=== PATIENT | male | born 1975 | race Caucasian/White ===

== ENCOUNTER 2018-12-13 14:16 | Observation (INO) | payer BC ==
[~2018-12-13] VITALS: Ht 172.7 cm; Wt 78.2 kg
--- NOTE | ~2018-12-13 | HEMODYNAMI ---
PATIENT:ESTHER VALDEZ MEDICAL RECORD: [id number] : 71 [facility] D[id number] ADMISSION DATE: 12/13/18 Generatedon:12/14/201811:36 Patient name: ESTHER VALDEZ Patient #: [id number] SSN: Jos OB: 1975 Date of study: 12/14/2018 Page: Of Hemodynamic Procedure Report Patient Data Patient Demographics Procedure consent was obtained First Name: ESTHER Gender: Male Last Name: JOSÉ MIGUEL : 1975 Middle Initial: MIKE Age: 43 year(s) Patient #: [id number] Race: Unknown Additional ID: [id number] Contact details [address]: [address] [place] [address] State: [place] City: [place] Zip code: [address] Admission Admission Data Admission Date: 12/13/2018 Admission Time: 17:40 Admit Source: Other Room #: D.2122 Height (in.): 67.72 BSA: 1.91 (m2) Height (cm.): 172 BMI: 26.37 (kg/m2) Weight (lbs.): 171.96 Weight (kg.): 78 Lab Results Lab Result Date: 12/14/2018 Lab Result Time: 0:00 Biochemistry Name Units Result Min Max BUN mg/dl 12 --(-*--)-- 7 18 Creatinine mg/dl 0.9 --(-*--)-- 0.6 1.3 CBC Name Units Result Min Max Hemoglobin g/dl 16.3 --(--*-)-- 13.5 17.5 Procedure Procedure Types Cath Procedure Diagnostic Procedure LHC LHC w/Coronaries Procedure Description Procedure Date Procedure Date: 12/14/2018 Procedure Start Time: 11:27 Procedure End Time: 11:34 Procedure Staff Name Function Willam Coe MD Performing Physician Margaret Cha RT Monitor Ken Garcia RT Scrub José Miguel Zamora RN Nurse Procedure Data Cath Procedure Fluoroscopy Diagnostic fluoroscopy Total fluoroscopy Time: 1 time: 1 min min Diagnostic fluoroscopy Total fluoroscopy dose: 354 dose: 354 mGy mGy Contrast Material Contrast Material Type Amount (ml) Isovue 370 67 Entry Location Entry Primary Successful Side Size Upsize Upsize Entry Closure Succes sful Closure Location (Fr) 1 (Fr) 2 (Fr) Remarks Device Remarks Femoral Right 5 Fr Exoseal artery Estimated blood loss: 5 ml Diagnostic catheters Device Type Used For End Catheter Placement MULTIPACK JL 4.0 5Fr Left Coronary catheter Angiography MULTIPACK 3DRC 5Fr Right Coronary catheter Angiography MULTIPACK Pigtail 5 Fr LV Angiography catheter Procedure Complications No complications Procedure Medications Medication Administration Route Dosage Oxygen etCO2 Nasal cannula 2 l/min Lidocaine 2% added to field 20 Heparin Flush Bag added to field 2 bags (1000units/500ml NS) 0.9% NaCl I.V. 100 ml/hr Versed I.V. 2 mg Fentanyl I.V. 100 mcg Versed I.V. 0.5 mg Fentanyl I.V. 25 mcg Solumedrol I.V. 125 mg Hemodynamics Rest BSA: 1.91 (m2) HGB: 16.3 (g/dl) O2 Consumption: Estimated: 230.12 (ml/min) O2 Co nsumption indexed: Estimated:120.48 (ml/min/m) Heart Rate: 69 (bpm) Pressure Samples Time Site Value (mmHg) Purpose Heart Use Rate(bpm) 11:31 LV 98/7,12 Snapshot 59 11:32 AO 110/77(91) Pullback 64 Gradients Valve Time Site Site 2 Mean SEP/DFP Peak To Heart Use 1 (mmHg) (sec/min) Peak Rate (mmHg) (bpm) Aortic 11:32 LV AO 64 110/77(91) Snapshots Pre Cath Intra NCS Post Cath Vital Signs Time Heart Resp SPO2 etCO2 NIBP (mmHg) Rhythm Pain Sedation Rate (ipm) (%) (mmHg) Status Level (bpm) 11:01:08 68 15 98 0 143/95(105) NSR w/ ST 0 (11) 10(A) Elevation , No pain 11:05:22 66 11 97 38.8 121/83(101) NSR w/ ST 0 (11) 10(A) Elevation , No pain 11:09:30 60 17 98 37.4 128/77(102) NSR w/ ST 0 (11) 10(A) Elevation , No pain 11:13:42 59 17 98 17.2 125/69(85) NSR w/ ST 0 (11) 9(A) Elevation , No pain 11:17:52 59 17 98 47.9 122/70(91) NSR w/ ST 0 (11) 9(A) Elevation , No pain 11:22:02 57 18 98 28.4 126/67(99) NSR w/ ST 0 (11) 9(A) Elevation , No pain 11:26:14 62 16 98 40.4 119/67(108) NSR w/ ST 0 (11) 9(A) Elevation , No pain 11:30:22 59 17 98 38.1 122/69(84) NSR w/ ST 0 (11) 9(A) Elevation , No pain 11:34:33 62 18 98 40.4 121/63(100) NSR w/ ST 0 (11) 10(A) Elevation , No pain Medications Time Medication Route Dose Verified Delivered Reason Notes Eff ectiveness by by 11:01:32 Oxygen etCO2 2 Willam Valdez used for Nasal l/min Saravanan Zamora specifications checker cannula 11:01:40 Lidocaine 2% added 20ml Willam Quarles for local to vial [facility] anesthetic field MD FABIAN 11:01:46 Heparin Flush added 2 Willam Chanelory used for Bag to bags [facility] procedure (1000units/500ml field MD FABIAN NS) 11:01:54 0.9% NaCl I.V. 100 Willam Valdez Per ml/hr St Barrie Zamora RN physician 11:10:03 Versed I.V. 2 mg Willam Valdez for SaravananBarrie Zamora RN sedation 11:10:09 Fentanyl I.V. 100 Willam Valdez for mcg Saravanan Zamora RN sedation 11:27:41 Versed I.V. 0.5 Willam Valdez for mg SaravananBarrie Zamora RN sedation 11:27:46 Fentanyl I.V. 25 Willam Valdez for mcg Saravanan Zamora RN sedation 11:34:18 Solumedrol I.V. 125 Willam Valdez Per mg Saravanan Zamora RN physician Procedure Log Time Note 10:30:25 Ken Garcia RT(R) sent for patient. Start room use. 10:43:26 Time tracking: Regular hours (M-F 7:00 - 5:00) 10:43:30 Plan of Care:Hemodynamics will remain stable., Cardiac rhythm will remain stable., Comfort level will be maintained., Respiratory function will remain adequate., Patient/ family verbilizes understanding of procedure., Procedure tolerated without complication., Recovers from procedure without complications.. 10:55:07 Patient received from Med II to CCL 2 Alert and oriented. Tansferred to table in Supine position. 10:55:08 Warm blankets applied, and irineo hugger turned on for patient comfort. 10:55:08 Correct patient and procedure confirmed by team. 10:55:10 Signed procedure consent form obtained from patient. 10:55:11 ECG and BP/O2 sat monitors applied to patient. 10:55:12 Pre-procedure instructions explained to patient. 10:55:12 Pre-op teaching completed and patient verbalized understanding. 10:55:14 Family in patients room. 10:55:21 H&P Date Dictated: 12/13/2018 Within 30 days and on chart.. 10:57:27 Is the patient allergic to Iodine/contrast media? No. 10:57:32 Is patient on blood thinner?No 10:57:36 Patient diabetic? No. 10:57:39 Previous problem with sedation/anesthesia? No ? 10:57:41 Snore? Yes 10:57:43 Sleep apnea? No 10:57:43 Deviated septum? No 10:57:44 Opens mouth fully? Yes 10:57:45 Sticks out tongue? Yes 10:57:47 Airway obstruction? No ? 10:57:53 Dentures? No ? 10:57:57 Pre procedure: right dorsailis pedis pulse 1+ Palpable, but thready & weak; easily obliterated 10:58:38 PHYSICIAN OPTED FOR FEMORAL APPROACH. 10:58:41 Patient pain scale 0/10 ?. 10:58:47 IV patent on arrival in left forearm with 0.9% NaCl at O. 10:58:49 Lab results completed and on chart. 10:58:55 Right groin area was prepped with chlora-prep and draped in sterile fashion 10:58:56 Alarms reviewed by R. N. 10:58:56 Sharps counted by scrub and verified by R.N. 10:59:17 Full Disclosure recording started 10:59:51 Rhythm: sinus rhythm , w/ ST elevation 10:59: Baseline sample Acquired. 11:00:02 Vital chart was started 11:01:32 Oxygen 2 l/min etCO2 Nasal cannula was administered by José Miguel Zamora RN; used for procedure; 11::40 Lidocaine 2% 20ml vial added to field was administered by Willam Coe MD; for local anesthetic; 11::46 Heparin Flush Bag (1000units/500ml NS) 2 bags added to field was administered by Willam Coe MD; used for procedure; :54 0.9% NaCl 100 ml/hr I.V. was administered by José Miguel Zamora RN; Per physician; 11:05:47 Admit Source: Other Patient Height : 67.72 inches Patient Weight : 171.96 lbs Lab Result : Hemoglobin 16.3 g/dl Lab Result : Creatinine 0.9 mg/dl Lab Result : BUN 12 mg/dl Physician arrived --------ALL STOP TIME OUT------ Final Timeout: patient, procedure, and site verified with staff and physician. All members of the team are in agreement. 11:: Right groin site verified by team. :: Maximum allowable Isovue 370 dose 300ml. Physician notified. (300ml for normal creatinines. For patients with creatinine of 1.7 or higher multiply weight(kg) x 5 divided by creatinine.) 11:: Fire Safety Assessment: A--An alcohol-based skin anteseptic being used preoperatively., C--Open oxygen or nitrous oxide is being used., D--An ESU, laser, or fiber-optic light is being used. 11:08:13 Physical assessment completed. ASA score P 2 - A patient with mild systemic disease as per Willam Coe MD. 11:08:16 Sedation plan: IV Moderate Sedation Medication:Versed, Fentanyl 11:09:56 Zero performed for pressure channel P1 11::03 Versed 2 mg I.V. was administered by José Miguel Zamora RN; for sedation; 11:: Fentanyl 100 mcg I.V. was administered by Buffie Zamora RN; for sedation; 11:26:53 Procedure started. 11:27:14 Local anesthetic to right femoral artery with Lidocaine 2% by Willam Coe MD.INITIAL ACCESS ONLY 11:27:28 A 5 Fr sheath was inserted into the Right Femoral artery 11:27:41 Versed 0.5 mg I.V. was administered by José Miguel Zamora RN; for sedation; 11:27:46 Fentanyl 25 mcg I.V. was administered by José Miguel Zamora RN; for sedation; 11:28:12 Use device set Femoral Dx 11:28:13 ACIST Syringe (24996) opened to sterile field. 11:28:13 Bag Decanter (2002S) opened to sterile field. 11:28:14 Medline Cath Pack ([id number]) opened to sterile field. 11:28:14 DIAGNOSTIC WIRE .035 260cm J wire (808849) opened to sterile field. 11:28:16 ACIST Hand Control (44941) opened to sterile field. 11:28:16 ACIST Manifold (82982) opened to sterile field. 11:28:17 DIAGNOSTIC Multipack 5Fr catheter set (AQ8450) opened to sterile field. 11:28:17 Tegaderm 4 x 4 (1626W) opened to sterile field. 11:28:18 SHEATH 5FR Magazine (WOT425) opened to sterile field. 11:28:25 A MULTIPACK JL 4.0 5Fr catheter was advanced over the wire and used for Left Coronary Angiography. 11:28:26 LCA angiography performed. 11:28:29 Injector settings: Ml/sec: 3, Volume: 6, 11:29:16 Catheter removed. 11:29:22 A MULTIPACK 3DRC 5Fr catheter was advanced over the wire and used for Right Coronary Angiography. 11:30:09 RCA angiography performed. 11:30:12 Injector settings: Ml/sec: 3, Volume: 6, 11:30:14 Catheter removed. 11:30:20 A MULTIPACK Pigtail 5 Fr catheter was advanced over the wire and used for LV Angiography. 11:31:28 LV hemodynamics recorded. 11:31:29 LV gram done using MEDRANO 11:31:34 Injector settings: Ml/sec: 5, Volume: 15, 11:31:43 EF : 50 % 11:32:16 Catheter removed. 11:32:18 EXOSEAL 5Fr (EX500) opened to sterile field. 11:32:29 Sheath removed intact; hemostasis achieved with Exoseal to the Right Femoral artery. 11:32:31 Procedure ended.(Physican Out) 11:33:04 Fluoroscopy time 01.00 minutes. 11:33:09 Fluoroscopy dose: 354 mGy 11:33:09 Flurop Dose total: 354 11:33:12 Contrast amount:Isovue 370 67ml. 11:33:14 Sharps counted by scrub and verified by R.N. 11:33:36 Insertion/operative site no bleeding no hematoma. 11:33:39 Post-op/insertion site Right Femoral artery dressed using a 4 x 4 and Tegaderm. 11:33:41 Post right femoral artery:stable 11:33:43 Post Procedure Pulses reassessed and unchanged 11:33:45 Post procedure rhythm: unchanged. 11:33:48 Estimated blood loss: 5 ml 11:33:50 Post procedure instruction explained to patient.Patient verbalizes understanding. 11:33:57 Patient needs reinforcement of post procedure teaching. 11:34:04 Procedure and supply charges have been captured, reviewed, submitted and are correct. 11:34:09 Procedure Complication : No complications 11:34:12 Vital chart was stopped 11:34:12 See physician's report for complete and final results. 11:34:17 Report given to [facility]. 11:34:18 Solumedrol 125 mg I.V. was administered by José Miguel Zamora RN; Per physician; 11:34:20 Patient transfered to [facility] with Stretcher. 11:34:23 Procedure ended. 11:34:23 Full Disclosure recording stopped 11:34:27 End room use (Document Last) Device Usage Item Name Manufacture Quantity Catalog Hospital Part Current Minimal L ot# / Number Charge Number Stock Stock Serial# Code ACIST Acist 1 08732 074374 258335 259908 20 Syringe Medical (06892) Systems Inc Bag Microtek 1 609055 13598 628590 5 Decanter Medical Inc. () Medline Medline 1 [id number] 936880 96673 162539 5 Cath Pack ([id number]) DIAGNOSTIC [facility] 1 756056 910444 883360 005821 30 WIRE .035 260cm J wire (774216) ACIST Hand Acist 1 17086 640322 245817 831523 5 Control Medical (28553) Systems Inc ACIST Acist 1 85330 353118 337695 233918 5 Manifold Medical (07146) Systems Inc DIAGNOSTIC Cardinal 1 PL1393 481673 22640 856883 30 Multipack Health 5Fr catheter set (WC1082) Tegaderm 4 3M 1 1626W 559840 834969 358003 5 x 4 (1626W) SHEATH 5FR Terumo 1 KRJ052 854628 183806 789496 5 Magazine (LIT338) MULTIPACK Cardinal 1 356770 5 JL 4.0 5Fr Health catheter MULTIPACK Cardinal 1 659686 5 3DRC 5Fr Health catheter MULTIPACK Cardinal 1 423056 5 Pigtail 5 Health Fr catheter EXOSEAL 5Fr Cardinal 1 EX500 076767 385477 898723 10 (EX500) Health Signature Audit [place] Stage Time Signature Unsigned Intra-Procedure 12/14/2018 Margaret Cha 11:36:15 AM RT(R) Signatures Monitor : Margaret Cha RT Signature : Date : Time : [place] [address] [place] [address]
[~2018-12-13 14:16] MED LIST: HYDROCODON-ACE1 EAC6 PO; SURFAK240 MG PO
[2018-12-13 14:58] VITALS: BP 135/85
[2018-12-13 15:06] LABS: BASOPHILS 0.2 % (0-2); EOSINOPHILS 0.3 % (0-7); HEMATOCRIT 44.6 % (42.0-54.0); HEMOGLOBIN 15.7 g/dL (13.5-17.5); IMMATURE GRANULOCYTES 0.4 % (0-5); LYMPHOCYTES 7.1 % (15-50); MCH 28.6 pg (26.0-34.0); MCHC 35.2 g/dL (31.0-37.0); MCV 81.4 fL (80.0-100.0); MEAN PLATELET VOLUME 9.4 fL (7.4-10.4); MONOCYTES 9.2 % (2-11); NEUTROPHILS 82.8 % (40-80); PLATELET COUNT 240 10x3/uL (130-400); RBC 5.48 10x6/uL (4.20-6.10); RDW 13.1 % (11.5-14.5); WBC 9.8 10x3/uL (4.8-10.8)
[2018-12-13 15:15] LABS: APTT 27.4 SECONDS (22.8-39.4); INR 0.99 (0.85-1.17); PROTIME 12.6 SECONDS (11.6-15.0)
[2018-12-13 15:18] LABS: ALBUMIN 3.8 g/dL (3.4-5.0); ALKALINE PHOSPHATASE 84 U/L (46-116); ALT (SGPT) 30 U/L (10-68); BILIRUBIN - TOTAL 0.51 mg/dL (0.2-1.3); CALC OSMOLALITY 277 mosm/kg (275-300); CALCIUM 8.7 mg/dL (8.5-10.1); CARBON DIOXIDE 27.9 mmol/L (21.0-32.0); CHLORIDE - SERUM 102 mmol/L (98-107); CREATININE - SERUM 0.8 mg/dL (0.6-1.3); GLUCOSE 98 mg/dL (74-106); PROTEIN - SERUM 7.6 g/dL (6.4-8.2); SODIUM 139 mmol/L (136-145); UREA NITROGEN 12 mg/dL (7-18); eGFR NON AFRICAN AMERICAN > 90 mL/min (90-120)
[2018-12-13 15:28] LABS: CKMB 0.8 U/L (0.0-3.6); CREATINE KINASE 29 UL (21-232)
[2018-12-13 15:29] LABS: TROPONIN-I < 0.017 ng/mL (0.000-0.060)
[2018-12-13 15:35] VITALS: BP 118/76
--- NOTE | 2018-12-13 15:36 | NUR ---
PT CONT TO C/O "A LITTLE CP AND KHAN" JG ODELL NOTIFIED AND OK TO NOT GIVE ADDITIONAL NITRO AND GIVE TYLENOL FOR KHAN
[2018-12-13 16:41] VITALS: BP 129/81
--- NOTE | 2018-12-13 16:43 | NUR ---
REPEAT LABS DRAWN PER AVID EDITOR
[2018-12-13 17:24] LABS: CKMB 0.3 U/L (0.0-3.6); CREATINE KINASE 25 UL (21-232)
[2018-12-13 17:32] LABS: TROPONIN-I < 0.017 ng/mL (0.000-0.060)
--- NOTE | 2018-12-13 17:58 | NUR ---
REPORT TO KALLIE DURON BY SBAR FORMAT
[2018-12-13 18:00] VITALS: BP 118/80
--- NOTE | 2018-12-13 18:00 | NUR ---
TTRANSPORTED TO FLOOR, CONDITION STABLE. SL LFA INTACT
--- NOTE | 2018-12-13 18:45 | NUR ---
RECIEVED FROM ER. ALERT AND ORIENTED. DENIES ANY PAIN AT PRESENT TIME. SL TO LEFT FA. TELEMERTY SHOWS SR. WILL MONITOR
--- NOTE | 2018-12-13 19:51 | NUR ---
ASSESSED PT, PT HAVING CHEST PAIN IN LEFT CHEST TRANSFERING TO SHOULDER BLADE AND UP TO NECK. STATES HE TOOK NITRO EARLIER AND IT WORKED FOR A MOMENT BUT THEN CAUSED A MAJOR HEADACHE. NOTED THAT NO EKG HAD BEEN DONE. NURSE DID AN EKG AND NOTED ST ELEVATION. MORPHINE AND ZOFRAN GIVEN FOR CHEST PAIN. WAITING TO SEE IF IT RELEIFS CHEST PAIN. WILL CALL CARDIO AND UPDATE ON ELEVATION AND CHEST PAIN. WILL CPOC
--- NOTE | 2018-12-13 20:20 | NUR ---
PT STATES CHEST PAIN RELEIF. ONLY PAIN IS SLIGHT DISCOMFORT IN LEFT SHOULDER WILL CPOC
--- NOTE | 2018-12-13 20:31 | NUR ---
CALLED DR HANKS AND UPDATED ON PT STATUS. MORPHINE HELPED CHEST PAIN. PT SITTING IN BED DRINKING TEA TALKING WITH DAUGHTER. DR HANKS STATED TO GIVE PT 2MG-4MG OF MORPHINE Q4 HOURS NEEDED FOR CHEST PAIN AND MAKE HIM NPO AFTER MIDNIGHT. PT UPDATED ON PLAN OF CARE. PT VERBALIZED UNDERSTANDING. PT HAS NO S/S OF DISTRESS. WILL CPOC
[2018-12-14] VITALS: BP 131/94
[2018-12-14 00:53] LABS: CKMB 0.2 U/L (0.0-3.6); CREATINE KINASE 23 UL (21-232)
[2018-12-14 00:56] LABS: TROPONIN-I < 0.017 ng/mL (0.000-0.060)
[2018-12-14 03:50] VITALS: BP 127/85; Ht 172.7 cm; Wt 78.2 kg
[2018-12-14 04:00] VITALS: BP 137/85
[2018-12-14 07:30] LABS: ALBUMIN 3.5 g/dL (3.4-5.0); ALKALINE PHOSPHATASE 88 U/L (46-116); ALT (SGPT) 29 U/L (10-68); BILIRUBIN - TOTAL 0.53 mg/dL (0.2-1.3); CALC OSMOLALITY 271 mosm/kg (275-300); CALCIUM 8.6 mg/dL (8.5-10.1); CARBON DIOXIDE 23.7 mmol/L (21.0-32.0); CHLORIDE - SERUM 102 mmol/L (98-107); CKMB 0.5 U/L (0.0-3.6); CREATINE KINASE 30 UL (21-232); CREATININE - SERUM 0.9 mg/dL (0.6-1.3); GLUCOSE 95 mg/dL (74-106); MAGNESIUM - SERUM 2.1 mg/dL (1.8-2.4); PHOSPHOROUS 3.2 mg/dL (2.5-4.9); POTASSIUM - SERUM 4.3 mmol/L (3.5-5.1); PROTEIN - SERUM 7.6 g/dL (6.4-8.2); SODIUM 136 mmol/L (136-145); UREA NITROGEN 12 mg/dL (7-18); eGFR NON AFRICAN AMERICAN > 90 mL/min (90-120)
[2018-12-14 07:31] LABS: TROPONIN-I < 0.017 ng/mL (0.000-0.060)
[2018-12-14 07:53] LABS: BASOPHILS 0.4 % (0-2); HEMATOCRIT 48.8 % (42.0-54.0); HEMOGLOBIN 16.3 g/dL (13.5-17.5); IMMATURE GRANULOCYTES 0.3 % (0-5); LYMPHOCYTES 12.4 % (15-50); MCH 28.4 pg (26.0-34.0); MCHC 33.4 g/dL (31.0-37.0); MEAN PLATELET VOLUME 10.1 fL (7.4-10.4); MONOCYTES 13.1 % (2-11); NEUTROPHILS 71.8 % (40-80); PLATELET COUNT 197 10x3/uL (130-400); RBC 5.73 10x6/uL (4.20-6.10); RDW 13.5 % (11.5-14.5); WBC 7.6 10x3/uL (4.8-10.8)
[2018-12-14 07:55] LABS: MCV 85.2 fL (80.0-100.0)
--- NOTE | 2018-12-14 08:05 | NUR ---
EXPLAINED CONSENT FOR TO PT ABOUT CARDIAC CATH AND RECEIVING BLOOD PRODUCTS. PT SIGNED CONSENTS. DENIES OTHER NEEDS AT THIS TIME. WILL CONTINUE TO MONITOR.
[2018-12-14 08:18] VITALS: BP 134/96
--- NOTE | 2018-12-14 09:51 | NUR ---
GAVE MORNING MEDICATION AT THIS TIME, TOLERATED WELL. DENIES OTHER NEEDS AT THIS TIME. WILL CONTINUE TO MONITOR.
--- NOTE | 2018-12-14 10:30 | NUR ---
PREOPED, SENT TO SET UP TECHNICIAN PER BED.
--- NOTE | 2018-12-14 11:09 | NUR ---
I have reviewed this patient and I concur with the Shift Assessment completed by the Licensed Practical Nurse today this shift.
--- NOTE | 2018-12-14 12:06 | NUR ---
RETUREND FROM SPANISH MOSS PICKER, VITAL SIGNS STABLE, TELEMETRY SHOWS SINUS RYHTHM AT 60. RIGHT GROIN SOFT WITH DRESSING DRY AND INTACT, PEDAL PULSE PALPABLE. SEDATED BUT AWAKENS EASILY. FAMILY AT BEDSIDE, SIDE RAILS UP AND CALL LIGHT WITHIN REACH. WILL CONTINUE TO MONITOR.
[2018-12-14 12:25] VITALS: BP 97/60
[2018-12-14 15:22] VITALS: BP 118/83
--- NOTE | 2018-12-14 15:45 | NUR ---
PT SIGNED AND UNDERSTOOD DISHCARGE PAPERS. LEFT FOREARM IV DISCONTINUED, TIP INTACT. TELEMETRY REMOVED. PT DENIES OTHER NEEDS AT THIS TIME.
--- NOTE | 2018-12-14 15:55 | NUR ---
PT IN WHEELCHAIR AND ESCORTED DOWNSTAIRS, SISTER TRANSPORITNG PT HOME.
--- NOTE | 2018-12-17 10:01 | MORECARE ---
CASE MANAGEMENT DISCHARGE SUMMARY PATIENT: ESTHER VALDEZ MIKE UNIT: [id number] ADM DATE: 12/13/18 AGE: 43 : [birth year] SEX: M ROOM/BED: D.2122 AUTHOR: CARLOTA SALINAS PHYSICIAN: REFERRING PHYSICIAN: KIT KEVIN MD DATE OF SERVICE: 12/17/18 Discharge Plan Patient Name: ESTHER VALDEZ Facility: [facility]:[place] : 1975 Planned Disposition: Home Anticipated Discharge Date: 12/14/18 Discharge Date: 12/14/2018 Expected LOS: 1 Initial Reviewer: [email or web address] Initial Review Date: 12/17/2018 Generated: 12/17/18 11:01 am Patient Name: ESTHER VALDEZ Page [id number] at 1001 All edits/amendments must be made on the electronic document DICTATION DATE: 12/17/18 1001 DIABETES TRAINER: RANJITH 12/17/18 1001 RPT#: [id number] DC DATE:12/14/18 STATUS: DIS IN [facility] [address] [place] [address] END OF REPORT
--- NOTE | 2018-12-17 15:06 | OP ---
PATIENT NAME: ESTHER VALDEZ MEDICAL RECORD: [id number] :[birth year] LOCATION:D.M2 D.2122 ADMISSION DATE:12/13/18 SURGEON: RAHUL HANKS MD DATE OF OPERATION: 12/14/2018 PROCEDURE: Left heart catheterization, selective coronary angiography, right femoral approach. CATHETERS: A 5-Telugu sheath, 5/4 left and right Brianna, 5/4 pig. The procedure was well tolerated. The patient was returned to simmons, sheath removed. ExoSeal device was placed. FINDINGS: Left ventriculography in 30-degree MEDRANO view: Normal wall motion, normal systolic function. CORONARY ANATOMY: LEFT MAIN: Left main is free of disease. LAD: Free of disease in the diagonal system. CIRCUMFLEX: Free of disease in the marginal system. RIGHT CORONARY ARTERY: Dominant artery, gives rise to PDA, free of disease. IMPRESSION: Normal LV systolic function, normal coronary anatomy. TRANSINT:[id number] Voice Confirmation ID: [id number] DOCUMENT ID: [id number] RAHUL HANKS MD at 1506 CC: [id number] DICTATION DATE: 12/14/18 1145 SEPTIC TECHNICIAN: 12/14/18 1229 DIS IN 12/14/18 [facility] [address] [place] [address]
--- NOTE | 2018-12-17 15:06 | CN ---
PATIENT NAME:ESTHER VALDEZ MEDICAL RECORD: [id number] : [birth year] LOCATION:D. D.2122 ADMIT DATE: 12/13/18 ACCOUNT: [id number] CONSULTING PHYSICIAN: RAHUL HANKS MD REFERRING PHYSICIAN: KIT KEVIN MD DATE OF CONSULTATION: 12/14/2018 HISTORY OF PRESENT ILLNESS: A 43-year-old gentleman with no known history of coronary artery disease, strong family history of coronary artery disease, was admitted with chest pain, both typical and atypical features, has continued to have rest pain throughout the night, some pleuritic, some heaviness; however, does have ECG changes at this point in time, unable to stress. We will plan for diagnostic coronary angiography to further delineate anatomy. PAST MEDICAL HISTORY: Otherwise, unremarkable. ALLERGIES: None known. MEDICATIONS: None chronically. SOCIAL HISTORY: Nonsmoker, nondrinker. Easily takes care of all his ADLs. No set exercise program. REVIEW OF SYSTEMS: The patient reports easy bruising but reports no swollen glands. The patient reports no fever, no night sweats, no significant weight gain, no significant weight loss. No significant exercise tolerance. The patient reports no dry eyes, no irritation, no vision change. Patient reports no difficulty hearing and no ear pain. Patient reports no frequent nose bleeds or nose and sinus problems. Patient reports on arm pain on exertion. No shortness of breath while lying down. No history of heart murmur. Patient reports no cough, no wheezing or coughing up blood. Patient reports no abdominal pain, no vomiting. Normal appetite. No diarrhea and not vomiting blood. No nausea and no constipation. Patient reports no incontinence. No difficulty urinating. No hematuria. No increased frequency. Patient reports no muscle aches. No weakness, no arthralgias, no back pain. No swelling of the extremities. Patient reports no abnormal mole, no jaundice, no rashes. Reports no loss of consciousness. No weakness and no numbness. No seizures, dizziness, or headaches. The patient reports no depression, no sleep disturbance, feeling safe in a relationship and no alcohol abuse. Patient reports on fatigue. Reports no runny nose or sinus pressure. No itching, no hives, and no frequent sneezing. PHYSICAL EXAMINATION: GENERAL: Young gentleman in no acute distress. HEENT: Normocephalic, atraumatic. NECK: No JVD or bruit. HEART: Regular. II/ systolic ejection murmur. LUNGS: Good air excursion. ABDOMEN: Soft, nontender. EXTREMITIES: Pulses 2+. No edema. DIAGNOSTIC DATA: ECG: LVH versus pericarditis. PLAN: We will plan for angiography, intervention based on the above. CONSULT REPORT [id number] ESTHER VALDEZ TRANSINT:[id number] Voice Confirmation ID: [id number] DOCUMENT ID: [id number] RAHUL HANKS MD at 1506 CC: [id number] DICTATION DATE: 12/14/18905 CHRONIC DISEASE MANAGER: 12/14/18929 DIS IN 12/14/18 [facility] [address] [place] [address]
== END 2018-12-14 16:44 | disposition home or self-care (01) ==
LOC: D.ER 14:16 → D.M2 17:40 → OBSVTIME 17:42 → D.SDCHOLD 12-14 13:39 → D.M2 12-14 13:43
PROVIDERS: Family Medicine; ADMIT Internal Medicine Nephrology; ATTEND Internal Medicine Nephrology
DX: I20.9 Angina pectoris, unspecified (principal); G89.29 Other chronic pain; M54.9 Dorsalgia, unspecified